=== PATIENT | female | born 1950 | race African-American/Black ===

== ENCOUNTER 2016-11-17 14:14 | Observation (INO) ==
[2016-11-17 15:15] LABS: MANUAL DIFF NEEDED? NO
[2016-11-17 15:18] LABS: BASO% 0.1 % (0.0-0.8); EOS# 0.14 X1000 (0.0-0.7); EOS% 1.4 % (0.0-10.0); HEMATOCRIT 30.8 % (37.0-47.0); HEMOGLOBIN 9.6 g/dL (12.0-16.0); IMM GRAN# 0.03 X1000 (0.0-0.04); IMM GRAN% 0.3 % (0.0-0.5); LYMPH# 3.28 X1000 (1.2-3.4); LYMPH% 32.6 % (20.5-51.1); MCH 27.8 PG (27-31); MCHC 31.2 g/dL (33-37); MCV 89.3 FL (81-99); MONO# 0.87 X1000 (0.11-0.59); MONO% 8.6 % (1.7-9.3); MPV 9.2 FL (7.4-10.4); PLT 282 X1000 (130-400); RBC 3.45 XMIL (4.2-5.4)
[2016-11-17] MEDS ORDERED: ASPIRIN PO ONE (15:19)
[2016-11-17 15:27] LABS: INR 0.96; PROTIME 10.1 Seconds (9.2-11.7); PTT 27.5 Seconds (22.0-36.0)
[2016-11-17 15:42] LABS: ALBUMIN 3.9 g/dL (3.5-5.0); CALCIUM 9.5 mg/dL (8.8-10.2); MAGNESIUM 1.6 mg/dL (1.5-2.7); POTASSIUM 3.9 mmol/L (3.5-5.1); TOTAL BILIRUBIN 0.18 mg/dL (0.20-1.00)
[2016-11-17 18:31] VITALS: BP 161/92
[2016-11-17] MEDS ORDERED: TYLENOL PO PRN (19:42)
[2016-11-17] MEDS ORDERED: VENTOLIN HFA INH PRN (19:42)
[2016-11-17] MEDS ORDERED: ZOFRAN IV PRN (19:42)
[2016-11-17] MEDS ORDERED: LOPRESSOR PO SCH (21:00)
[2016-11-17] MEDS ORDERED: TAMBOCOR PO SCH (21:00)
[2016-11-17] MEDS ORDERED: ADVAIR 250/50 DISKUS INH SCH (21:00)
[2016-11-18] MEDS ORDERED: PRILOSEC PO SCH (07:00)
[2016-11-18] MEDS ORDERED: SPIRIVA INH SCH (07:30)
[2016-11-18] MEDS ORDERED: COZAAR PO SCH (09:00)
[2016-11-18] MEDS ORDERED: VITAMIN D PO SCH (09:00)
[2016-11-18] MEDS ORDERED: LOVENOX SUBQ SCH (09:00)
[2016-11-18] MEDS ORDERED: ASPIRIN PO SCH (09:00)
[2016-11-18] MEDS ORDERED: HEMOCYTE PLUS CAPSULE PO SCH (09:00)
[2016-11-18] MEDS ORDERED: PATADAY 0.2% OPH SOLUTION BOTH EYES SCH (09:00)
[2016-11-18] MEDS ORDERED: CYMBALTA PO SCH (09:00)
== END 2016-11-17 20:55 | disposition left against medical advice (07) ==
LOC: 3N 14:14 → ED 14:14 → 3N 19:44
PROVIDERS: ATTEND Internal Medicine

== ENCOUNTER 2018-05-24 15:07 | Inpatient (IN) ==
[2018-05-24 16:32] LABS: URINE SOURCE CLEAN CATCH
[2018-05-24 16:33] LABS: BASO# 0.03 X1000 (0.0-0.2); BASO% 0.1 % (0.0-0.8); EOS# 0.03 X1000 (0.0-0.7); EOS% 0.1 % (0.0-10.0); HEMATOCRIT 30.5 % (37.0-47.0); HEMOGLOBIN 9.8 g/dL (12.0-16.0); IMM GRAN# 0.19 X1000 (0.0-0.04); IMM GRAN% 0.7 % (0.0-0.5); LYMPH# 3.83 X1000 (1.2-3.4); LYMPH% 13.7 % (20.5-51.1); MCH 26.1 PG (27-31); MCHC 32.1 g/dL (33-37); MCV 81.1 FL (81-99); MONO# 1.29 X1000 (0.11-0.59); MONO% 4.6 % (1.7-9.3); MPV 9.2 FL (7.4-10.4); NEUT# 22.66 X1000 (1.4-6.5); NEUT% 80.8 % (42.2-75.2); PLT 388 X1000 (130-400); RBC 3.76 XMIL (4.2-5.4); RDW 14.2 % (11.5-14.5); WBC 28.03 X1000 (4.8-10.8)
[2018-05-24 16:34] LABS: BILIRUBIN URINE NEGATIVE (NEGATIVE); BLOOD URINE TRACE (NEGATIVE); COLOR YELLOW; GLUCOSE URINE NEGATIVE (NEGATIVE); KETONE URINE NEGATIVE (NEGATIVE); LEUKOCYTES URINE LARGE (NEGATIVE); NITRITE URINE NEGATIVE (NEGATIVE); PH URINE 5.5; PROTEIN URINE 50 mg/dL (NEGATIVE); SP GRAVITY URINE 1.014; TURBIDITY URINE HAZY (CLEAR); UROBILINOGEN URINE 2 mg/dL (NORMAL)
[2018-05-24 16:36] LABS: URINE BACTERIA NEGATIVE /HPF; URINE RBC <10 /HPF (<10); URINE WBC TNTC /HPF (<10)
[2018-05-24] MEDS ORDERED: ZOFRAN IV ONE (16:44)
[2018-05-24 16:52] LABS: ALB/GLOB RATIO 0.7; ALBUMIN 3.6 g/dL (3.5-5.0); CALCIUM 9.8 mg/dL (8.8-10.2); POTASSIUM 3.8 mmol/L (3.5-5.1); TOTAL BILIRUBIN 0.57 mg/dL (0.20-1.00); TOTAL PROTEIN 8.5 g/dL (6.3-8.3)
[2018-05-24 17:03] LABS: URINE CASTS NONE SEEN; URINE CRYSTALS NONE SEEN; URINE SMALL ROUND CELLS RENAL PRESENT; URINE YEAST NONE SEEN
--- NOTE | 2018-05-24 17:09 | ED EKG INTERP ---
This chart was entered by Erma Duff Scribe, acting as scribe for Violette Herman MD. EKG Interpretation - EKG Time of EKG reading by physician:: 15:56 EKG Read and Signed by:: Violette Herman EKG Interpretation (*Must complete 3 of following elements*): Abnormal Rate: 122 Rhythm: sinus tachycardia [place]: normal QRS: normal [place] Interval: normal ST Wave: normal Comments: septal infarct, age undetermined Attestation - Physician/ GEOVANNA Attestation Patient care was provided by Advanced Practice Provider:: No The physician spent face to face time with patient:: Yes Advanced Practice Provider documentation review:: Supervising physician onsite and consulted in the evaluation and care of this patient. The physician did have a face to face encounter with the patient. This chart was documented by the indicated scribe, (Erma Duff Scribe) and accurately reflects the services I performed and decisions made by , Violette Herman MD, as attested by the provider's signature.
[2018-05-24 17:15] LABS: UR EPITHELIAL CELLS <10 /HPF (<10)
--- NOTE | 2018-05-24 17:24 | Diag Imaging Result Doc PS360 ---
EXAM: CHEST-2 VIEWS 05/24/2018 HISTORY: chest pain TECHNIQUE: PA and lateral chest COMMENT: There is alveolar opacity in the right upper lobe which was not present on 02/10/2018. Otherwise the appearance the chest has not changed significantly. IMPRESSION: Right upper lobe pneumonia. Advise follow-up until clear. Electronically signed by Shola Gusman 05/24/2018 5:21 PM
[2018-05-24] MEDS ORDERED: VANCOMYCIN 1 GM/NS 1 GM/250 ML IVPB IV ONE (17:25)
[2018-05-24] MEDS ORDERED: NS 1,000 ML IV ONE ×2 (17:26→18:17)
[2018-05-24] MEDS ORDERED: ZOSYN 3.375 GM in NS 50 ML IV ONE (17:26)
--- NOTE | 2018-05-24 17:33 | PROVIDER DOCUMENTATION ---
HPI-General Adult - General Chief Complaint: Return/Recheck Stated Complaint: weakness Time Seen by Provider: 05/24/18 15:24 Source: patient Allergies/Adverse Reactions: Patient Allergies Allergy/AdvReac Type Severity Reaction Status Date / Time No Known Allergies Allergy Verified 04/18/17 06:29 Home Medications: Home Medication List Medication Instructions Recorded Confirmed Last Taken Type Flecainide Acetate 25 mg PO BID 04/14/12 04/18/17 04/18/17 04:00 History Iron Fum,Ps Cmp/Vit C/Niacin 1 cap PO DAILY 11/09/15 04/18/17 04/17/17 09:00 History [Integra Capsule] Tiotropium Alkol Inhaler 1 puff PO DAILY 11/09/15 04/18/17 04/17/17 09:00 H istory [Spiriva] Losartan [Cozaar] 50 mg PO DAILY 12/15/15 04/18/17 04/17/17 09:00 History Albuterol Sulfate [Proair Hfa] 1 puff INH Q4-6H PRN PRN 09/29/16 04/18/17 04/17/17 09:00 History Amlodipine [Norvasc] 5 mg PO DAILY 09/29/16 04/18/17 04/18/17 04:00 History Cholecalciferol (Vit D3) [Vitamin 5,000 unit PO DAILY 09/29/16 04/18/17 04/17/17 09:00 History D3] Metoprolol 100 mg PO DAILY 09/29/16 04/18/17 04/18/17 04:00 History Omeprazole [Prilosec] 20 mg PO DAILY@0700 09/29/16 04/18/17 04/13/17 History Acetaminophen [Tylenol] 500 mg PO Q6H PRN PRN 04/16/17 04/18/17 04/17/17 21:00 History Duloxetine [Cymbalta] 60 mg PO DAILY 04/16/17 04/18/17 04/18/17 04:00 History Olopatadine 0.2% Oph Solution 1 drop OP DAILY 04/16/17 04/18/17 04/17/17 09:00 History [Pataday 0.2% Oph Solution] Ciprofloxacin HCl [Cipro] 500 mg PO BID #20 tab 02/10/18 Unknown Rx Dicyclomine [Bentyl] 20 mg PO BID PRN #20 cap 02/10/18 Unknown Rx Metronidazole [Flagyl] 500 mg PO TID #30 tab 02/10/18 Unknown Rx Ondansetron [Zofran Odt] 4 mg PO 4XDAY PRN PRN #20 02/10/18 Unknown Rx tab.rapdis Cyclobenzaprine [Flexeril] 10 mg PO TID 3 Days #6 tab 03/24/18 Unknown Rx - History of Present Illness -Gen Adult Nature of Presenting Problems: 68 y/o female patient who came to the ED yesterday but could not wait to be seen after blood taken from her. Patient was called to return to the ED due to abnormal labs. Her symptoms started 2 days ago with weakness, chest burning, vomiting, urinary frequency/hesitancy, and mild shortness of breath. Patient has h/o ?COPD , sleep apnea on cpap, and is apparently supposed to be on home oxygen intermitently. Onset/Duration: reports: 2 days ago Timing: reports: still present Associated Symptoms: reports: diarrhea, nausea, vomiting, weakness. denies: fever/chills Review of Systems - Adult - REVIEW OF SYSTEMS - ADULT Constitutional: reports: other (weakness) Eyes: reports: no symptoms reported Ears, Nose, Mouth & Throat: reports: no symptoms reported Cardiovascular: reports: other (burning in chest) Respiratory: reports: shortness of breath (mild) Gastrointestinal: reports: nausea, vomiting Genitourinary: reports: frequency, hesitency Musculoskeletal: reports: other (uses a cane) Integumentary: reports: no symptoms reported Neurological: reports: no symptoms reported Psychiatric: reports: no symptoms reported Endocrine: reports: no symptoms reported Hematologic/Lymphatic: reports: no symptoms reported Allergic/Immunologic: reports: no symptoms reported All Other Systems: Reviewed and Negative Past History - Adult - PAST MEDICAL HISTORY-ADULT Review of Records: reports: Old Records Reviewed, Nursing Assessment Review Cardiovascular: reports: CAD, HTN, [place] Respiratory: reports: COPD Genitourinary: reports: kidney disease Musculoskeletal: reports: arthritis Other Conditions: reports: denies history - PRIOR SURGERIES/PROCEDURES Surgical/Procedure History: reports: BTL, tonsillectomy - IMMUNIZATION STATUS Childhood Immunizations: See Nurse Assessment Flu Vaccine: See Nurse Assessment - FAMILY HISTORY Family History: reviewed, not pertinent Physical Exam-General - PHYSICAL EXAM-ADULT Initial Vital Signs Reviewed: Yes - CONSTITUTIONAL General Appearance: alert, mild distress, obese - EYES Eyes: PERRL/EOMI, pink conjunctivae - HEAD, EARS, NOSE, MOUTH & THROAT HENMT: normocephalic/atraumatic, moist mucous membranes - NECK Neck: non-tender, full range of motion - RESPIRATORY Respiratory: decreased breath sounds. negative: rhonchi, wheezing - CARDIOVASCULAR Cardiovascular: normal peripheral pulses, tachycardia - GASTROINTESTINAL (ABDOMEN) Abdominal Exam: normal bowel sounds, non tender, soft - MUSCULOSKELETAL Back Exam: no CVA tenderness Extremity: normal range of motion, non-tender - SKIN Integumentary: normal color, normal turgor - NEUROLOGIC Neurologic: grossly normal, no motor/sensory deficits - PSYCHIATRIC Psych/Mental Status: oriented x 3 Progress - PLAN OF CARE/RESULTS Progress/Plan/Lab Results: Vital Signs - 8 hr 05/24/18 15:17 Temperature 98.1 F Pulse Rate 118 H Respiratory Rate 18 Blood Pressure 113/79 O2 Sat by Pulse Oximetry 96 Laboratory Results - last 24 hr 05/24/18 05/24/18 05/24/18 15:58 15:58 15:58 WBC 28.03 H RBC 3.76 L Hgb 9.8 L Hct 30.5 L MCV 81.1 MCH 26.1 L MCHC 32.1 L RDW Std Deviation 14.2 Plt Count 388 MPV 9.2 Immature Gran % (Auto) 0.7 H Neut % (Auto) 80.8 H Lymph % (Auto) 13.7 L [place] % (Auto) 4.6 Eos % (Auto) 0.1 Baso % (Auto) 0.1 Immature Gran # (Auto) 0.19 H Neut # (Auto) 22.66 H Lymph # (Auto) 3.83 H [place] # (Auto) 1.29 H Eos # (Auto) 0.03 Baso # (Auto) 0.03 Sodium 134 L Potassium 3.8 Chloride 94 L Carbon Dioxide 20 L Anion Gap 20 BUN 25 H Creatinine 2.0 H Estimated GFR/1.73 m2 30 BUN/Creatinine Ratio 13 Glucose 116 H Calculated Osmolality 274 Calcium 9.8 Total Bilirubin 0.57 AST 18 ALT 9 L Alkaline Phosphatase 89 Troponin T < 0.010 [id number]-[id number] Pept Total Protein 8.5 H Albumin 3.6 Globulin 4.9 Albumin/Globulin Ratio 0.7 Lipase Plasma Lactate Urine Source Urine Color Urine Turbidity Urine pH Ur Specific [place] Urine Protein Ur Glucose (Stick) Ur Ketones (Stick) Urine Blood Urine Nitrite Urine Bilirubin Urobilinogen Dipstick Urine Leukocytes Urine WBC (Auto) Urine RBC (Auto) U Epithel Cells (Auto) Urine Bacteria (Auto) Urine Crystals Small Round Cells Urine Casts Urine Yeast-like Cells 05/24/18 05/24/18 05/24/18 15:58 15:58 15:58 WBC RBC Hgb Hct MCV MCH MCHC RDW Std Deviation Plt Count MPV Immature Gran % (Auto) Neut % (Auto) Lymph % (Auto) [place] % (Auto) Eos % (Auto) Baso % (Auto) Immature Gran # (Auto) Neut # (Auto) Lymph # (Auto) [place] # (Auto) Eos # (Auto) Baso # (Auto) Sodium Potassium Chloride Carbon Dioxide Anion Gap BUN Creatinine Estimated GFR/1.73 m2 BUN/Creatinine Ratio Glucose Calculated Osmolality Calcium Total Bilirubin AST ALT Alkaline Phosphatase Troponin T Txs-M-Huzdxxxestw Pept 1169 H Total Protein Albumin Globulin Albumin/Globulin Ratio Lipase 15 Plasma Lactate 3.0 H Urine Source Urine Color Urine Turbidity Urine pH Ur Specific [place] Urine Protein Ur Glucose (Stick) Ur Ketones (Stick) Urine Blood Urine Nitrite Urine Bilirubin Urobilinogen Dipstick Urine Leukocytes Urine WBC (Auto) Urine RBC (Auto) U Epithel Cells (Auto) Urine Bacteria (Auto) Urine Crystals Small Round Cells Urine Casts Urine Yeast-like Cells 05/24/18 16:21 WBC RBC Hgb Hct MCV MCH MCHC RDW Std Deviation Plt Count MPV Immature Gran % (Auto) Neut % (Auto) Lymph % (Auto) [place] % (Auto) Eos % (Auto) Baso % (Auto) Immature Gran # (Auto) Neut # (Auto) Lymph # (Auto) [place] # (Auto) Eos # (Auto) Baso # (Auto) Sodium Potassium Chloride Carbon Dioxide Anion Gap BUN Creatinine Estimated GFR/1.73 m2 BUN/Creatinine Ratio Glucose Calculated Osmolality Calcium Total Bilirubin AST ALT Alkaline Phosphatase Troponin T Bkj-I-Ikwtlruoilf Pept Total Protein Albumin Globulin Albumin/Globulin Ratio Lipase Plasma Lactate Urine Source CLEAN CATCH Urine Color YELLOW Urine Turbidity HAZY Urine pH 5.5 Ur Specific [place] 1.014 Urine Protein 50 A Ur Glucose (Stick) NEGATIVE Ur Ketones (Stick) NEGATIVE Urine Blood TRACE A Urine Nitrite NEGATIVE Urine Bilirubin NEGATIVE Urobilinogen Dipstick 2 A Urine Leukocytes LARGE A Urine WBC (Auto) TNTC A Urine RBC (Auto) <10 U Epithel Cells (Auto) <10 Urine Bacteria (Auto) NEGATIVE Urine Crystals NONE SEEN Small Round Cells RENAL PRESENT Urine Casts NONE SEEN Urine Yeast-like Cells NONE SEEN Orders Category Date Time Status CHEST-2 VIEWS [RAD] Stat Exams 05/24/18 16:43 Completed BLOOD CULTURE [BLDCUL] Stat Lab 05/24/18 16:47 Uncollected CBC WITH ELECTRONIC DIFF [HEME] Stat Lab 05/24/18 15:58 Completed COMPREHENSIVE METABOLIC PANEL [CHEM] Stat Lab 05/24/18 15:58 Completed LACTATE, PLASMA [CHEM] Stat Lab 05/24/18 15:58 Completed LIPASE [CHEM] Stat Lab 05/24/18 15:58 Completed PRO B-NATRIURETIC PEPTIDE Stat Lab 05/24/18 15:58 Completed TROPONIN T Stat Lab 05/24/18 15:58 Completed UA NIMS W/REFLEX CULT [URINALYSIS] Stat Lab 05/24/18 16:21 Completed URINE CULTURE [RM] Routine Lab 05/24/18 17:17 Received URINE MANUAL MICROSCOPIC [URINALYSIS] Stat Lab 05/24/18 16:21 Completed 0.9% Sodium Chloride Inj [Ns] 1,000 ml Med 05/24/18 17:26 Active IV 999 mls/hr Ondansetron [Zofran] Med 05/24/18 16:44 Discontinued 4 mg IV NOW ONE Piperacillin/Tazobactam [Zosyn] 3.375 gm Med 05/24/18 17:26 Active 0.9% Sodium Chloride Inj [Ns] 50 ml IV NOW Vancomycin 1 gm/Ns Med 05/24/18 17:25 Active 1 gm in 250 ml IV NOW EKG [EKG] Stat Ther 05/24/18 15:47 Ordered Result Diagrams: 05/24/18 15:58 05/24/18 15:58 - XRAY 1 XRAY Study: Chest Impression: Abnormal ( EXAM: CHEST-2 VIEWS 05/24/2018 HISTORY: chest pain TECHNIQUE: PA and lateral chest COMMENT: There is alveolar opacity in the right upper lobe which was not present on 02/10/2018. Otherwise the appearance the chest has not changed significantly. IMPRESSION: Right upper lobe pneumonia. Advise follow-up until clear. Electronically signed by Shola Gusman 05/24/2018 5:21 PM 05/24/181720 Interpreting Physician: Shola Gusman MD Dictated Date/Time: 05/24/[id number]) - CONSULTS/PCP/HOSPITALIST Notification #1 *Consult/PCP/Hospitalist*: MARILIN Grullon/ Dr. Pantoja Time Discussed: 18:10 Consult Disposition: Admit Departure - Departure Date of Disposition Decision: 05/24/18 Time of Disposition Decision: 18:11 DIAGNOSIS: Pneumonia Qualifiers: Pneumonia type: due to unspecified organism Laterality: right Lung location: upper lobe of lung Qualified Code(s): J18.1 - Lobar pneumonia, unspecified organism Sepsis Qualifiers: Sepsis type: sepsis due to unspecified organism Qualified Code(s): A41.9 - Sepsis, unspecified organism Renal failure Qualifiers: Renal failure chronicity: acute on chronic Acute renal failure type: unspecified Chronic kidney disease stage: unspecified stage Qualified Code(s): N17.9 - Acute kidney failure, unspecified UTI (urinary tract infection) Qualifiers: Urinary tract infection type: site unspecified Hematuria presence: without hematuria Qualified Code(s): N39.0 - Urinary tract infection, site not specified Disposition: ADMITTED INPATIENT 09 Certified Medical Emergency: Emergent Condition: Serious Referrals and Follow-Ups: None,PCP [Primary Care Provider] - - Critical Care Note This patient required my direct & personal management of CC.: No Attestation - Physician/ GEOVANNA Attestation The physician spent face to face time with patient:: Yes Advanced Practice Provider documentation review:: Supervising physician onsite and consulted in the evaluation and care of this patient. The physician did have a face to face encounter with the patient.
[2018-05-24] MEDS ORDERED: VANCOMYCIN IV PER PHARMACY MISC SCH (18:15)
--- NOTE | 2018-05-24 18:19 | SEPSIS: TISSUE PERFUSION ASSMT ---
Sepsis: Tissue Perfusion Assmt - Physical Exam Assessment Date: 05/24/18 Time Assessment Initialized: 18:15 Vital Signs: Last Vital Signs Temp 98.1 F 05/24/18 15:17 Pulse 119 H 05/24/18 17:53 Resp 18 05/24/18 17:53 BP 96/70 05/24/18 17:53 Pulse Ox 96 05/24/18 17:10 Height 4 ft 3 in Weight 167 lb Lung Sounds:: rhonchi Heart Sounds:: Regular, Other (tachycardic) Capillary Refill Time: Less Than 2 Seconds Peripheral Pulse Evaluation:: radial (R): 2+, radial (L): 2+, dorsalis-pedis (R): 2+, dorsalis-pedis (L): 2+ Skin Exam:: pale - Impression Impression:: Tissue Perfusion Adequate - Plan Plan:: See Orders
--- NOTE | 2018-05-24 19:14 | HISTORY AND PHYSICAL ---
HISTORY OF PRESENT ILLNESS: This is a patient of Dr. Simone Fernando. She is also being followed by Dr. Carballo, Dr. Cleveland, and Dr. Bennett. A 68-year-old female has a history of COPD, oxygen dependent on 3 L, although recently she has not had her oxygen by report, says she is having trouble getting it. History of what appears to be paroxysmal atrial fibrillation, chronic kidney disease, hypertension, osteoporosis, and coronary artery disease. She was last here admitted on 11/17/2016, I think, with exacerbation of COPD. She presents this time, said for a couple weeks now she has had a cough. Seems to be more short of breath, and then the last couple of days, she felt like she was smothering and coughing up a lot of thick mucus and really struggling to breathe. She denied fever, chills. She denies any real pleuritic pain until the last 24 hours and that is more in her mid chest. Denies any pressure type pain or palpitations. She has had some burning when she passed her water, but not much. She feels like she has had some incontinence because of her coughing, incontinence of urination. PAST MEDICAL HISTORY: 1. Paroxysmal atrial fibrillation. 2. Chronic COPD, was at one time on O2 at 3 L, and not on O2 at this time. 3. Obstructive sleep apnea. 4. Chronic kidney disease followed by Dr. Bennett. 5. Hypertension. 6. Osteoporosis. 7. Coronary artery disease. 8. History of pancreatitis. PAST SURGICAL HISTORY: She has had bilateral tubal ligation and tonsillectomy. She has recently had EGD and colonoscopy done by Dr. Lee, actually that was couple years ago, she had EGD and colonoscopy and they were negative. SOCIAL HISTORY: Quit smoking in 1999. Denies alcohol or drug use. She is , I think lives alone. FAMILY HISTORY: She denies any history of heart or kidney or lung problems. No known medical problems. REVIEW OF SYSTEMS: General: She denies any weight gain or loss. No fever or chills. HEENT: No change in visual or hearing acuity. No cervical adenopathy. No sore throat or upper respiratory complaints such as sinus tenderness. Neck: Has been supple and she has not appreciated any adenopathy. Respiratory: As above. Increased work of breathing. Increased sputum production, although she does have chronic sputum production from her COPD and bronchitis. It seems to be more productive and thicker. She has been coughing. Cardiovascular: No chest pain or tachy palpitation. She does have a history of atrial fibrillation, but has not noticed any palpitations. Gastrointestinal and Genitourinary: No gross hematuria or dysuria. She has had some incontinence of her bladder she thinks from coughing. No blood per rectum. No dark appearing stools. Musculoskeletal/Neurologic: Just general weakness. No focal complaints. Endocrinologic/Hematologic: No significant history. PHYSICAL EXAMINATION: GENERAL: In the emergency room, she is awake, alert, and oriented x3. VITAL SIGNS: Temperature 98.1 degrees, pulse 116, respirations 20, blood pressure 96/70. HEENT: Pupils are equal and round. LUNGS: Clear in all lung peterson. CARDIOVASCULAR: Regular rhythm and rate without murmur or S3. ABDOMEN: Soft. SKIN: Warm and dry. Weight 180 pounds. EXTREMITIES: No pedal edema. NECK: Supple. No thyromegaly. No adenopathy. LABORATORY DATA: White count 28,030, hematocrit is 30, hemoglobin 9.8 with an MCV of 81, platelet count 388,000. Sodium 134, potassium 3.4, chloride 94, bicarb 20, BUN 25, creatinine 2.0, calcium is 9.8, AST 18, ALT is 9, alkaline phosphatase 89. Troponin less than 0.01. ProBNP 1169. Albumin is 3.6, lipase 15. Urinalysis shows too numerous to count white blood cells and negative for bacteria. Chest x-ray: Right upper lobe pneumonia. ASSESSMENT AND PLAN: 1. Right upper lobe pneumonia, underlying chronic obstructive pulmonary disease, chronic obstructive pulmonary disease exacerbation. She is not allergic to anything. We will treat her for community-acquired pneumonia. I will give her Rocephin 1 g IV now and then 24 hours. She does not have much bronchospasm, but I will give her a little bit of Solu-Medrol and see if this will help and duo nebs as well as a steroid inhaler. We will put her on guaifenesin to thin the mucus and help her clear her secretions. 2. History of paroxysmal atrial fibrillation. Aware. 3. Obstructive sleep apnea. I do not think she wears CPAP, but she is supposed to be on oxygen, so we will see if we can help her get that oxygen and get her ready for it. 4. Chronic kidney disease, followed by Dr. Bennett. Her creatinine is 2.0. I am guessing she has stage III, maybe stage IIIB chronic kidney disease. 5. Hypertension. Will watch blood pressure. 6. Osteoporosis. Aware. 7. History of coronary artery disease. No sign of active ischemia. 8. History of pancreatitis in the past. MEDICATIONS: Review of her current medications, she is on 1. Flecainide 25 mg b.i.d. 2. Metoprolol 100 mg daily. 3. Norvasc 5 mg a day. 4. Vitamin D3 5000 units a day. 5. Cymbalta 60 mg a day. 6. Integra capsule which is multivitamin with iron 1 a day. 7. Cozaar 50 mg a day. 8. Pataday eyedrops 0.2% 1 drop each eye daily. 9. Prilosec 20 mg a day. 10. Spiriva 1 puff daily. cc: Basil Pantoja MD
[2018-05-24] MEDS ORDERED: VANCOMYCIN 1.2 GM in NS 250 ML IV ONE (20:00)
[2018-05-24] MEDS ORDERED: ATROVENT NEB INH SCH (22:00)
[2018-05-24] MEDS ORDERED: XOPENEX NEB INH SCH (22:00)
[2018-05-24] MEDS: SOLU-MEDROL IV SCH (22:18)
[2018-05-24] MEDS: NS 1,000 ML IV SCH (22:18)
[2018-05-24] MEDS: ROCEPHIN 1 GM in NS 50 ML IV SCH (22:18)
[2018-05-24] MEDS: TAMBOCOR PO SCH (22:19)
[2018-05-24] MEDS: MUCINEX PO SCH (22:19)
[2018-05-24] MEDS: DUONEB (A & A) INH SCH ×2 (23:15→23:21)
[2018-05-25] MEDS ORDERED: ZOSYN 3.375 GM in NS 50 ML IV SCH (00:01)
[2018-05-25] MEDS ORDERED: BLISTEX MEDICATED BERRY LIP BALM TOP PRN (05:01)
[2018-05-25 05:25] LABS: BASO# 0.02 X1000 (0.0-0.2); BASO% 0.1 % (0.0-0.8); EOS# 0.01 X1000 (0.0-0.7); EOS% 0.1 % (0.0-10.0); HEMATOCRIT 26.2 % (37.0-47.0); HEMOGLOBIN 8.2 g/dL (12.0-16.0); IMM GRAN# 0.09 X1000 (0.0-0.04); IMM GRAN% 0.5 % (0.0-0.5); MCH 25.6 PG (27-31); MCHC 31.3 g/dL (33-37); MCV 81.9 FL (81-99); MONO% 0.6 % (1.7-9.3); MPV 9.5 FL (7.4-10.4); NEUT# 15.75 X1000 (1.4-6.5); NEUT% 91.7 % (42.2-75.2); PLT 325 X1000 (130-400); WBC 17.17 X1000 (4.8-10.8)
[2018-05-25 05:35] LABS: ALB/GLOB RATIO 0.6; ALBUMIN 3.1 g/dL (3.5-5.0); CALCIUM 9.8 mg/dL (8.8-10.2); CREATININE 1.7 mg/dL (0.5-0.9); POTASSIUM 4.3 mmol/L (3.5-5.1); TOTAL BILIRUBIN 0.3 mg/dL (0.20-1.00)
[2018-05-25] MEDS: SOLU-MEDROL IV SCH ×2 (05:50→17:22)
[2018-05-25 05:52] LABS: FREE T4 1.29 ng/dL (0.93-1.70); TSH 1.7 uIUmL (0.27-4.20)
[2018-05-25] MEDS: PRILOSEC PO SCH (06:07)
[2018-05-25] MEDS: NS 1,000 ML IV SCH ×2 (06:07→17:00)
[2018-05-25] MEDS: SPIRIVA INH SCH (08:16)
[2018-05-25] MEDS: DUONEB (A & A) INH SCH ×4 (08:17→19:29)
[2018-05-25] MEDS: ADVAIR 250/50 DISKUS INH SCH (08:17)
[2018-05-25] MEDS: COZAAR PO SCH (08:37)
[2018-05-25] MEDS: TAMBOCOR PO SCH ×2 (08:37→20:53)
[2018-05-25] MEDS: HEMOCYTE PLUS CAPSULE PO SCH (08:37)
[2018-05-25] MEDS: MUCINEX PO SCH ×2 (08:37→20:52)
[2018-05-25] MEDS: VITAMIN D PO SCH (08:37)
[2018-05-25] MEDS: CYMBALTA PO SCH (08:37)
[2018-05-25] MEDS: NORVASC PO SCH (08:37)
[2018-05-25] MEDS: LOVENOX SUBQ SCH (08:38)
[2018-05-25] MEDS: PATADAY 0.2% OPH SOLUTION BOTH EYES SCH (08:38)
[2018-05-25] MEDS ORDERED: METOPROLOL 100 MG PO SCH (09:00)
[2018-05-25] MEDS: LOPRESSOR PO SCH ×2 (09:18→20:53)
--- NOTE | 2018-05-25 09:23 | PROGRESS NOTE ---
DATE: 05/25/2018 SUBJECTIVE: Ms. Ulloa is breathing a whole lot better, and she was eating her breakfast. Her bowels are moving okay by report. OBJECTIVE: Vital Signs: Temperature 97.5 degrees, pulse 103, respirations 20, blood pressure 125/89. Eyes: Pupils are equal and round. Lungs: Clear in all lung peterson. Cardiovascular exam: Regular rhythm and rate without murmur or S3. Abdomen: Soft. Extremities: No pedal edema. : Urine output was 600 mL. ASSESSMENT AND PLAN: 1. Right upper lobe pneumonia, underlying chronic obstructive pulmonary disease exacerbation. Continue supplementary oxygen. She is on Rocephin 1 gram every 24 hours for community- acquired pneumonia. No bronchospasm at this time. Continue Solu-Medrol. We will taper down the dose of Solu-Medrol. 2. History of paroxysmal atrial fibrillation, rate is controlled. Appears in sinus rhythm at this time. 3. Obstructive sleep apnea history. Aware. 4. Chronic kidney disease. Creatinine was 2.0 and creatinine is down to 1.7. Electrolytes this morning: Sodium 136, potassium 4.3, chloride 101. BUN 25, creatinine 1.7. Plasma lactate level came down to 1.4. She is improving. Seems to be a little stronger. We need to make sure we set up her oxygen for when she goes home. She is supposed to be on 3 L and she may do well with 2 L, but will see. 5. Hypertension. Blood pressure under good control. 6. History of osteoporosis. 7. History of coronary artery disease. No sign of active ischemia. Review of her orders: Norvasc 5 mg a day, vitamin D 3 5000 units a day, Cymbalta 60 mg daily, flecainide 25 mg b.i.d., fluticasone salmeterol 1 puff daily that is a 250/50, guaifenesin ER 1200 mg b.i.d., Cozaar 50 mg a day, methylprednisone 60 mg q. 8 hours (I will cut that down to 40 mg twice a day), ceftriaxone 1 g q. 24 hours, Prilosec 20 mg a day. She got 1 dose of vancomycin and piperacillin when she came in. cc: Basil Pantoja MD
[2018-05-25] MEDS: TYLENOL PO PRN ×2 (10:54→17:29)
[2018-05-25] MEDS ORDERED: TUMS PO PRN (13:11)
--- NOTE | 2018-05-25 14:08 | Diag Imaging Result Doc PS360 ---
CHEST-2 VIEWS - 05/25/2018 INDICATION: Pneumonia COMPARISON: 05/24/2018 FINDINGS: There is a grossly stable dense alveolar infiltrate in the right upper lobe posterior segment. No new infiltrates. Stable cardiomegaly. IMPRESSION: Right upper lobe pneumonia. No change from prior. Electronically signed by Rajeev Driver 05/25/2018 2:05 PM
[2018-05-25] MEDS: ROCEPHIN 1 GM in NS 50 ML IV SCH (20:51)
[2018-05-26] MEDS: DUONEB (A & A) INH SCH ×6 (02:08→23:19)
[2018-05-26] MEDS: SOLU-MEDROL IV SCH ×2 (05:43→18:17)
[2018-05-26] MEDS: PRILOSEC PO SCH (06:00)
[2018-05-26] MEDS: NS 1,000 ML IV SCH ×2 (06:20→16:56)
--- NOTE | 2018-05-26 07:31 | PROGRESS NOTE ---
DATE: 05/26/2018 SUBJECTIVE: Ms. Ulloa was sleeping, resting comfortably. She was on BiPAP last night. She states her breathing is much better. She did have a bowel movement yesterday. She is eating okay. OBJECTIVE: Temperature 97.8 degrees, pulse 94, respirations 21, blood pressure 140/77. Pupils are equal and round. Lungs are clear in all lung peterson. Cardiovascular Examination: Regular rhythm and rate without murmur or S3. Abdomen is soft. Skin is warm and dry. Urine output 1100 mL. Chest x-ray revealed right upper lobe pneumonia. ASSESSMENT AND PLAN: 1. Right upper lobe pneumonia with underlying chronic obstructive pulmonary disease, chronic hypoxia, supposed to be on home oxygen. We need to make sure her home oxygen is set up. She has not had that for several months. Continue present treatment with bronchodilators, Rocephin 1 g daily, and we have tapered down her Solu-Medrol. 2. Paroxysmal atrial fibrillation. She appears in sinus rhythm. Rate is controlled. 3. History of obstructive sleep apnea. She has a CPAP at home. 4. Chronic kidney disease. Renal function appears stable. Actually, creatinine is improved to 1.7. Electrolytes: Sodium 136, potassium 4.3, chloride 101, BUN 25. 5. Hypertension. Blood pressure under good control. 6. History of osteoporosis. 7. History of coronary artery disease. No sign of active ischemia. Blood pressures have remained well controlled, between 122-140/61-89. REVIEW OF HER CURRENT ORDERS: She is getting nebulized albuterol and ipratropium q.4 hours while awake, Norvasc 5 mg a day, calcium carbonate 500 mg q.4 hours p.r.n., vitamin D3 5000 units a day, Cymbalta 60 mg a day, flecainide 25 mg b.i.d., fluticasone salmeterol 1 puff daily, guaifenesin ER 1200 mg b.i.d., Cozaar 50 mg a day, methylprednisone 40 mg IV q.12 hours, Lopressor 25 mg twice a day, multivitamin 1 a day, getting fluids with normal saline 85 mL an hour, olopatadine 0.2% one drop to each eye daily, Prilosec 20 mg a day, ceftriaxone 1 g IV q.24 hours, tiotropium bromide inhaler one a day. She did have, of her blood cultures, one out of two with gram-positive cocci so we will wait on cultures but this may have been a contaminant. cc: Basil Pantoja MD
[2018-05-26] MEDS: ADVAIR 250/50 DISKUS INH SCH (08:12)
[2018-05-26] MEDS: SPIRIVA INH SCH (08:12)
[2018-05-26] MEDS: COZAAR PO SCH (08:30)
[2018-05-26] MEDS: MUCINEX PO SCH ×2 (08:30→20:01)
[2018-05-26] MEDS: LOVENOX SUBQ SCH (08:30)
[2018-05-26] MEDS: TAMBOCOR PO SCH ×2 (08:30→20:01)
[2018-05-26] MEDS: CYMBALTA PO SCH (08:30)
[2018-05-26] MEDS: HEMOCYTE PLUS CAPSULE PO SCH (08:30)
[2018-05-26] MEDS: NORVASC PO SCH (08:30)
[2018-05-26] MEDS: VITAMIN D PO SCH (08:30)
[2018-05-26] MEDS: LOPRESSOR PO SCH ×2 (08:30→20:01)
[2018-05-26] MEDS: PATADAY 0.2% OPH SOLUTION BOTH EYES SCH (08:31)
[2018-05-26] MEDS: TYLENOL PO PRN (16:55)
[2018-05-26] MEDS ORDERED: VANCOMYCIN 1 GM/NS 1 GM/250 ML IVPB IV SCH (20:00)
[2018-05-26] MEDS: ROCEPHIN 1 GM in NS 50 ML IV SCH ×2 (20:01→21:51)
[2018-05-27] MEDS: SOLU-MEDROL IV SCH (06:17)
[2018-05-27] MEDS: PRILOSEC PO SCH (06:18)
[2018-05-27] MEDS: NS 1,000 ML IV SCH (06:20)
--- NOTE | 2018-05-27 07:03 | EKG Report ---
Test Performed on : 05/24/2018 3:56:32 PM Test Reason : pain Blood Pressure : / mmHG Vent. Rate : 122 BPM Atrial Rate : 122 BPM P-R Int : 162 ms QRS Dur : 072 ms QT Int : 310 ms P-R-T Axes : 030 -08 018 degrees QTc Int : 441 ms Sinus tachycardia. Septal infarct (cited on or before 15-JUN-2011) Abnormal ECG When compared with ECG of 24-MAY-2018 15:55, (Unconfirmed) No significant change was found Unconfirmed Result
[2018-05-27] MEDS: LOVENOX SUBQ SCH (10:25)
[2018-05-27] MEDS: NORVASC PO SCH (10:27)
[2018-05-27] MEDS: CYMBALTA PO SCH (10:28)
[2018-05-27] MEDS: VITAMIN D PO SCH (10:28)
[2018-05-27] MEDS: HEMOCYTE PLUS CAPSULE PO SCH (10:28)
[2018-05-27] MEDS: COZAAR PO SCH (10:28)
[2018-05-27] MEDS: MUCINEX PO SCH (10:29)
[2018-05-27] MEDS: LOPRESSOR PO SCH (10:29)
[2018-05-27] MEDS: TAMBOCOR PO SCH (10:29)
[2018-05-27] MEDS: SPIRIVA INH SCH (11:39)
[2018-05-27] MEDS: ADVAIR 250/50 DISKUS INH SCH (11:39)
[2018-05-27] MEDS: DUONEB (A & A) INH SCH ×3 (11:39→16:13)
[2018-05-27] MEDS ORDERED: NS 50 ML ONE (13:01)
[2018-05-27] MEDS: TYLENOL PO PRN (14:32)
[2018-05-27] MEDS: PATADAY 0.2% OPH SOLUTION BOTH EYES SCH (14:32)
[2018-05-27 16:16] VITALS: BP 166/93
[2018-05-27] MEDS ORDERED: LEVAQUIN PO SCH (17:30)
--- NOTE | 2018-05-27 17:45 | PROGRESS NOTE ---
DATE: 05/27/2018 SUBJECTIVE: Ms. Ulloa is breathing better, doing better, and feeling better. Her IV infiltrated, so we will take that out. OBJECTIVE: Vital signs: Temp degrees, pulse 89, respirations 13, blood pressure 166/93. HEENT: Pupils are equal and round. Lungs: Clear in all lung peterson. Diminished wheezing. Expiratory phase is pretty much equal to inspiratory phase. Cardiovascular: Regular rhythm and rate without murmur or S3. Abdomen: Soft. Skin: Warm and dry. Extremities: No pedal edema. DIAGNOSTIC STUDIES: Telemetry gave some strips with more rapid heart rate. ASSESSMENT AND PLAN: 1. She has a right upper lobe pneumonia and underlying chronic obstructive pulmonary disease, so chronic obstructive pulmonary disease exacerbation. She needs to get her home O2 set up which she has not had for several months. Continue treatment, bronchodilators. I will switch her from Rocephin to Levaquin p.o. and we will give her some prednisone for a prednisone taper. 2. Paroxysmal atrial fibrillation and at times atrial flutter. Rate is controlled. 3. Obstructive sleep apnea. She is on CPAP at home. 4. Chronic kidney disease. Creatinine appears stable. 5. Hypertension. Blood pressure appears under good control. 6. History of osteoporosis. 7. History of coronary artery disease. MEDICATIONS: She is on DuoNeb q.4 hours, Norvasc 5 mg a day, calcium carbonate 500 mg q.4 hours p.r.n. heartburn, vitamin D3 5000 units a day, Cymbalta 60 mg a day. She is on deep venous thrombosis prophylaxis with Lovenox 40 mg subcutaneous daily, Tambocor 25 mg b.i.d., fluticasone salmeterol 250/50 one puff daily, guaifenesin ER 1200 mg b.i.d., losartan 50 mg a day, methylprednisone 40 mg IV q.12, Lopressor 25 mg b.i.d., multivitamin 1 a day. So I will DC the ceftriaxone and put her on Levaquin p.o. We need to make sure she gets oxygen lined up for home. Ask [facility] to help with that. cc: Basil Pantoja MD [facility]al
--- NOTE | 2018-05-27 18:17 | DISCHARGE SUMMARY ---
ADMISSION DATE: 05/24/2018 DISCHARGE DATE: 05/27/2018 PRIMARY CARE PHYSICIAN: She does not have a primary care physician, but she is followed by Dr. Cleveland, and then later she told me she is followed by Dr. Fernando, Dr. Carballo and Dr. Bennett so she does have all those physicians involved. HISTORY OF PRESENT ILLNESS: A 68-year-old female with history of COPD, oxygen dependent on 3 L at night only and she has been out of her oxygen, unable to get it. The provider apparently has gone out of business. History appears to be paroxysmal atrial fibrillation, chronic kidney disease, hypertension, osteoporosis, coronary artery disease. She was admitted back in 11/17/2016 I think with an exacerbation of COPD. This time she presents with a couple week history of increasing shortness of breath. Last couple of days have been very tough, a lot of thick mucus, a struggle to walk any distance at all. Denies fever or chills. Denies any pleuritic pain. She has had some pressure type discomfort and palpitations. She has had some burning when she passed her water. PAST MEDICAL HISTORY: Review again: 1. Paroxysmal atrial fibrillation. 2. Chronic COPD was at one time on O2 at 3 L, not on any O2 at this time. 3. Obstructive sleep apnea. 4. Chronic kidney disease, followed by Dr. Bennett 5. Hypertension. 6. Osteoporosis. 7. Coronary artery disease. 8. History of pancreatitis. PAST SURGICAL HISTORY: She has had bilateral tubal ligation and tonsillectomy. She has recently had an EGD and colonoscopy done per Dr. Lee recently a couple of years ago. EGD and colonoscopy were negative by report. HOSPITAL COURSE: She was admitted with: 1. Right upper lobe pneumonia, underlying chronic obstructive pulmonary disease and COPD exacerbation. She was treated for community-acquired pneumonia with Rocephin 1 g, and she had a good deal of bronchospasm. 2. History of paroxysmal atrial fibrillation, but rate appeared to be well controlled. 3. Obstructive sleep apnea. She wears CPAP at night. Continued that in the hospital. 4. Chronic kidney disease followed by Dr. Bennett. Her creatinine remained stable. She appears to be stage 3 chronic kidney disease. 5. Hypertension. Blood pressure well controlled. 6. Osteoporosis. So, she improved. Her air and gas exchange improved and she wanted to go home on 05/27/2018. She has been in touch with [employer] to see if we can get her oxygen out for nighttime. She already has her CPAP. DISCHARGE MEDICATIONS: She will be on Norvasc 5 mg a day, Tums as needed, vitamin D 5000 units a day, Cymbalta 60 mg a day, Tambocor 25 mg b.i.d., Advair 250/50 one puff twice a day, Mucinex 1200 mg b.i.d., Levaquin 750 mg p.o. daily for another 7 days, Cozaar 50 mg a day, Lopressor 25 mg b.i.d., and omeprazole 20 mg a day. We will give her prednisone taper, and I will probably give her a Medrol Dosepak, and she already has Spiriva, which she takes 1 puff daily. cc: Basil Pantoja MD
[2018-05-27] MEDS ORDERED: ORAPRED LIQUID PO SCH (21:00)
== END 2018-05-27 18:43 | disposition home or self-care (01) | DRG 194 ==
LOC: ED 15:07 → 3S 19:14 → 3N 05-26 14:02
PROVIDERS: ATTEND Emergency Medicine
CPT/HCPCS: 71020; 71046; 80053; 81001; 82607; 82746; 83605; 83690; 83880; 84439; 84443; 84484; 85025; 87040; 87077; 87088; 87186; 93005; 94640; 94660; 94761; 94799; 96361; 96365; 96366; 96375; 99282; 99285; A9270; J0696; J1650; J2405; J2543; J2920; J2930; J3370; J7030; J7050; J7510